=== PATIENT | female | born 1965 | race Caucasian/White ===

== ENCOUNTER → 2020-07-21 | Outpatient (CLI) | payer OTHER ==
[~2020-07-21] MED LIST: CEPHALEXIN500 M1 PO; COMBIVENT0.074 GM/I INH; FLOVENT 44 MCG7.9 GM INH; GLUCOTROL 10 MG10 MG PO; HABITROL 21 MG P1 EA TD; IPRAT-ALBUT 0.5-3 ML INH; LASIX20 MG PO; LEVAQUIN750 MG PO; MEDROL DOSEPAK 24 MG PO; METFORMIN HCL1000 MG PO; PIOGLITAZONE HC15 MG PO; PROTONIX 40 MG40 M1 PO; ROBITUSSIN DM473 ML PO; ZOCOR10 MG PO
== END ==
LOC: RAD 15:31
DX: R06.02 Shortness of breath (principal)
CPT/HCPCS: 71046

== ENCOUNTER 2020-07-22 13:09 | Emergency (ER) | payer OTHER ==
[~2020-07-22 13:09] MED LIST changes: -CEPHALEXIN500 M1 PO
[2020-07-22 14:37] LABS: HEMOGLOBIN 17.6 gm/dl (12.3-15.3); RED BLOOD COUNT 5.47 M/UL (4.00-5.10); WHITE BLOOD COUNT 7.9 K/UL (4.5-11.0)
[2020-07-22 15:05] LABS: BUN/CREATININE RATIO 12 (0-10)
[2020-07-22] MEDS ORDERED: CEPHALEXIN500 M1 PO (17:36)
== END 2020-07-22 17:20 | disposition left against medical advice (07) ==
LOC: ER1 13:09
PROVIDERS: Physician Assistant
DX: R07.2 Precordial pain (principal); N39.0 Urinary tract infection, site not specified; E11.9 Type 2 diabetes mellitus without complications; E78.5 Hyperlipidemia, unspecified; K21.9 Gastro-esophageal reflux disease without esophagitis; J44.9 Chronic obstructive pulmonary disease, unspecified; Z90.49 Acquired absence of other specified parts of digestive tract; F17.210 Nicotine dependence, cigarettes, uncomplicated
CPT/HCPCS: 80053; 81001; 82550; 82553; 83690; 83874; 84484; 85025; 85379; 93005; 96374; 99285

== ENCOUNTER → 2020-09-03 | Outpatient (CLI) | payer OTHER ==
[~2020-09-03] MED LIST changes: +CEPHALEXIN500 M1 PO
== END ==
LOC: MAMO 08-12 15:30
DX: Z12.31 Encounter for screening mammogram for malignant neoplasm of breast (principal)
CPT/HCPCS: 77063; 77067

== ENCOUNTER → 2020-10-17 | Outpatient (CLI) | payer OTHER | LOC: ECHO 09-16 09:00 → NM 09-16 10:00 → ECHO 11:45 | DX: R07.9 Chest pain, unspecified (principal) | CPT/HCPCS: ECHO; 78452; 93017; 93306; A9502; J2785 ==

== ENCOUNTER → 2020-12-03 | Outpatient (CLI) | payer OTHER ==
[2020-12-03 16:07] LABS: BUN/CREATININE RATIO 10 (0-10)
== END ==
LOC: LAB 13:45
PROVIDERS: Internal Medicine Cardiovascular Disease
DX: E78.00 Pure hypercholesterolemia, unspecified (principal); E11.9 Type 2 diabetes mellitus without complications
CPT/HCPCS: 36415; 80053; 80061; 83036; 84443

== ENCOUNTER → 2021-08-04 | Outpatient (CLI) | payer OTHER | LOC: KOH-I 15:22 | DX: M54.50 Low back pain, unspecified (principal); M51.36 Other intervertebral disc degeneration, lumbar region; M51.34 Other intervertebral disc degeneration, thoracic region | CPT/HCPCS: 72070; 72100 ==